=== PATIENT | female | born 1975 | race Caucasian/White ===

== ENCOUNTER 2017-06-28 17:58 | Emergency (ER) | payer MEDICAID ==
[~2017-06-28] VITALS: Ht 162.6 cm; Wt 90.0 kg
[~2017-06-28 17:58] MED LIST: NO MEDS
[2017-06-28] MEDS ORDERED: METHOCARBAMOL 500 MG TABLET PO ONE (19:15)
[2017-06-28] MEDS ORDERED: KETOROLAC TROMETHAMINE 60 MG/2 ML VIAL IM ONE (19:15)
[2017-06-28 20:07] VITALS: BP 144/87
== END 2017-06-28 20:09 | disposition home or self-care (01) ==
LOC: EMS 18:01
DX: S20.229A Contusion of unspecified back wall of thorax, initial encounter (principal); M54.2 Cervicalgia; Z88.0 Allergy status to penicillin; V49.88XA Car occupant (driver) (passenger) injured in other specified transport accidents, initial encounter; Y93.89 Activity, other specified; Y92.89 Other specified places as the place of occurrence of the external cause; Y99.8 Other external cause status
CPT/HCPCS: 96372; 99283; J1885

== ENCOUNTER 2018-04-18 15:37 | Emergency (ER) | payer SELFPAY ==
[~2018-04-18] VITALS: Ht 167.6 cm; Wt 109.1 kg
[2018-04-18] MEDS ORDERED: KETOROLAC TROMETHAMINE 10 MG TABLET PO ONE (16:30)
[2018-04-18] MEDS ORDERED: METHOCARBAMOL 500 MG TABLET PO ONE (16:30)
[2018-04-18 17:04] VITALS: BP 134/71
== END 2018-04-18 17:13 | disposition home or self-care (01) ==
LOC: EMS 15:38
DX: M75.92 Shoulder lesion, unspecified, left shoulder (principal); M54.12 Radiculopathy, cervical region; Z88.0 Allergy status to penicillin